=== PATIENT | female | born 1985 | race Caucasian/White ===

== ENCOUNTER 2017-10-18 18:49 | Emergency (ER) | payer MEDICAID ==
[~2017-10-18] VITALS: Ht 170.2 cm; Wt 65.3 kg
[2017-10-18 18:58] VITALS: BP 115/76
[2017-10-18] MEDS ORDERED: MUPIROCIN OINT 2%, 22GM TP ONE (19:45)
== END 2017-10-18 20:46 | disposition home or self-care (01) ==
LOC: ED 20:40
DX: L03.115 Cellulitis of right lower limb (principal); F17.200 Nicotine dependence, unspecified, uncomplicated
CPT/HCPCS: 99282